=== PATIENT | female | born 1965 | race Caucasian/White ===

== ENCOUNTER 2021-03-12 14:14 | Outpatient (CLI) | payer OTHER | END 2021-03-12 14:15 | disposition home or self-care (01) | LOC: CSHMAMMO 14:14 | PROVIDERS: ATTEND Family Medicine | DX: Z12.31 Encounter for screening mammogram for malignant neoplasm of breast (principal) | CPT/HCPCS: 77063; 77067 ==

== ENCOUNTER 2023-06-30 15:06 | Outpatient (CLI) | payer BC | END 2023-06-30 15:07 | disposition home or self-care (01) | LOC: CSHMAMMO 15:06 | PROVIDERS: ATTEND Family Medicine | DX: Z12.31 Encounter for screening mammogram for malignant neoplasm of breast (principal) | CPT/HCPCS: 77063; 77067 ==